=== PATIENT | female | born 1995 | race Caucasian/White ===

== ENCOUNTER 2019-02-08 08:12 | Emergency (ER) | payer BC ==
[2019-02-08] MEDS ORDERED: Sodium Chloride 0.9% 1,000 ML IV ONE (08:58)
--- NOTE | 2019-02-08 09:21 | EDM.PDOC ---
<Darcy Muro - Last Filed: 02/08/19 13:29> ED HPI GENERAL MEDICAL PROBLEM - General Chief Complaint: General Stated Complaint: NEEDS FLUIDS/SENT BY CADEN FERRARI Time Seen by Provider: 02/08/19 09:11 - Related Data Allergies Allergy/AdvReac Type Severity Reaction Status Date / Time iodine Allergy Swelling Verified 02/08/19 08:21 shellfish derived Allergy Swelling Verified 02/08/19 08:21 Home Meds: Home Meds FLUoxetine [PROzac] 1 tab PO DAILY 02/08/19 [History] Levothyroxine 75 mcg PO ACBREAKFAST 02/08/19 [History] Course - Vital Signs Last Recorded V/S: Last Vital Signs Temp 36.9 C 02/08/19 08:22 Pulse 69 02/08/19 08:22 Resp 14 02/08/19 08:22 BP 139/94 H 02/08/19 08:22 Pulse Ox 100 02/08/19 08:22 - Orders/Labs/Meds Orders: Active Orders 24 hr Category Date Time Status Elbow Min 3V Rt [CR] Stat Exams 02/08/19 09:56 Taken Elbow wo Cont Rt [MR] Stat Exams 02/08/19 13:12 Taken Forearm 2V Rt [CR] Stat Exams 02/08/19 09:56 Taken MYOGLOBIN, URINE Stat Lab 02/08/19 11:15 Received Durable Medical Equipment for Discharge [DME for Oth 02/08/19 16:14 Ordered Discharge] [COMM] Stat Labs: Laboratory Tests 02/08/19 02/08/19 02/08/19 Range/Units 08:52 08:52 08:52 WBC 5.93 (3.98-10.04) K/mm3 RBC 4.79 (3.98-5.22) M/mm3 Hgb 13.0 (11.2-15.7) gm/dl Hct 39.3 (34.1-44.9) % MCV 82.0 (79.4-94.8) fl MCH 27.1 (25.6-32.2) pg MCHC 33.1 (32.2-35.5) g/dl RDW Std Deviation 39.0 (36.4-46.3) fL Plt Count 276 (182-369) K/mm3 MPV 10.2 (9.4-12.3) fl Neut % (Auto) 52.4 (34.0-71.1) % Lymph % (Auto) 38.1 (19.3-51.7) % [place] % (Auto) 7.1 (4.7-12.5) % Eos % (Auto) 2.2 (0.7-5.8) Baso % (Auto) 0.2 (0.1-1.2) % Neut # (Auto) 3.11 (1.56-6.13) K/mm3 Lymph # (Auto) 2.26 (1.18-3.74) K/mm3 [place] # (Auto) 0.42 H (0.24-0.36) K/mm3 Eos # (Auto) 0.13 (0.04-0.36) K/mm3 Baso # (Auto) 0.01 (0.01-0.08) K/mm3 Sodium 138 (136-145) mEq/L Potassium 3.7 (3.5-5.1) mEq/L Chloride 105 (98-107) mEq/L Carbon Dioxide 23 (21-32) mEq/L Anion Gap 13.7 (5-15) BUN 11 (7-18) mg/dL Creatinine 0.7 (0.55-1.02) mg/dL Est Cr Clr Drug Dosing 100.74 mL/min Estimated GFR (MDRD) > 60 (>60) mL/min BUN/Creatinine Ratio 15.7 (14-18) Glucose 91 (74-106) mg/dL Calcium 9.2 (8.5-10.1) mg/dL Magnesium 1.7 L (1.8-2.4) mg/dl Total Bilirubin 0.5 (0.2-1.0) mg/dL AST 279 H (15-37) U/L ALT 154 H (14-59) U/L Alkaline Phosphatase 36 L (46-116) U/L Creatine Kinase 33769 H (26-192) U/L Total Protein 7.3 (6.4-8.2) g/dl Albumin 3.9 (3.4-5.0) g/dl Globulin 3.4 gm/dL Albumin/Globulin Ratio 1.2 (1-2) Urine Color (Yellow) Urine Appearance (Clear) Urine pH (5.0-8.0) Ur Specific [place] (1.005-1.030) Urine Protein (Negative) Urine Glucose (UA) (Negative) Urine Ketones (Negative) Urine Occult Blood (Negative) Urine Nitrite (Negative) Urine Bilirubin (Negative) Urine Urobilinogen (0.2-1.0) Ur Leukocyte Esterase (Negative) Urine RBC (0-5) /hpf Urine WBC (0-5) /hpf Ur Squamous Epith Cells (0-5) /hpf Urine Bacteria (FEW) /hpf Urine Mucus (FEW) /hpf 02/08/19 Range/Units 09:45 WBC (3.98-10.04) K/mm3 RBC (3.98-5.22) M/mm3 Hgb (11.2-15.7) gm/dl Hct (34.1-44.9) % MCV (79.4-94.8) fl MCH (25.6-32.2) pg MCHC (32.2-35.5) g/dl RDW Std Deviation (36.4-46.3) fL Plt Count (182-369) K/mm3 MPV (9.4-12.3) fl Neut % (Auto) (34.0-71.1) % Lymph % (Auto) (19.3-51.7) % [place] % (Auto) (4.7-12.5) % Eos % (Auto) (0.7-5.8) Baso % (Auto) (0.1-1.2) % Neut # (Auto) (1.56-6.13) K/mm3 Lymph # (Auto) (1.18-3.74) K/mm3 [place] # (Auto) (0.24-0.36) K/mm3 Eos # (Auto) (0.04-0.36) K/mm3 Baso # (Auto) (0.01-0.08) K/mm3 Sodium (136-145) mEq/L Potassium (3.5-5.1) mEq/L Chloride (98-107) mEq/L Carbon Dioxide (21-32) mEq/L Anion Gap (5-15) BUN (7-18) mg/dL Creatinine (0.55-1.02) mg/dL Est Cr Clr Drug Dosing mL/min Estimated GFR (MDRD) (>60) mL/min BUN/Creatinine Ratio (14-18) Glucose (74-106) mg/dL Calcium (8.5-10.1) mg/dL Magnesium (1.8-2.4) mg/dl Total Bilirubin (0.2-1.0) mg/dL AST (15-37) U/L ALT (14-59) U/L Alkaline Phosphatase (46-116) U/L Creatine Kinase (26-192) U/L Total Protein (6.4-8.2) g/dl Albumin (3.4-5.0) g/dl Globulin gm/dL Albumin/Globulin Ratio (1-2) Urine Color Yellow (Yellow) Urine Appearance Clear (Clear) Urine pH 6.0 (5.0-8.0) Ur Specific [place] 1.025 (1.005-1.030) Urine Protein Negative (Negative) Urine Glucose (UA) Negative (Negative) Urine Ketones Negative (Negative) Urine Occult Blood Negative (Negative) Urine Nitrite Negative (Negative) Urine Bilirubin Negative (Negative) Urine Urobilinogen 0.2 (0.2-1.0) Ur Leukocyte Esterase Negative (Negative) Urine RBC 0-5 (0-5) /hpf Urine WBC Not seen (0-5) /hpf Ur Squamous Epith Cells 0-5 (0-5) /hpf Urine Bacteria Few (FEW) /hpf Urine Mucus Few (FEW) /hpf Meds: Medications Discontinued Medications Generic Name Dose Route Start Last Admin Trade Name Freq PRN Reason Stop Dose Admin Sodium Chloride 1,000 mls @ 999 mls/hr 02/08/19 08:58 02/08/19 09:09 Normal Saline IV 02/08/19 09:58 999 mls/hr ONETIME ONE Administration Lactated Ringer's 1,000 mls @ 999 mls/hr 02/08/19 11:25 02/08/19 11:34 Ringers, Lactated IV 02/08/19 12:25 999 mls/hr .BOLUS ONE Administration Lactated Ringer's 1,000 mls @ 999 mls/hr 02/08/19 13:08 02/08/19 13:19 Ringers, Lactated IV 02/08/19 14:08 999 mls/hr .BOLUS ONE Administration Lactated Ringer's 1,000 mls @ 999 mls/hr 02/08/19 13:08 02/08/19 13:19 Ringers, Lactated IV 02/08/19 14:08 999 mls/hr .BOLUS ONE Administration - Re-Assessments/Exams Free Text/Narrative Re-Assessment/Exam: 02/08/19 1130 [facility] social work contacted to assist with patient placement. Departure - Departure Disposition: Home, Self-Care 01 Clinical Impression: Rhabdomyolysis, Injury of right elbow, Injury of tendon of biceps - Discharge Information Instructions: Rhabdomyolysis Referrals: Caden Ferrari MD [Primary Care Provider] - Anthony Villareal MD [Physician] - Forms: ED Department Discharge Additional Instructions: Return to the emergency room with any questions problems worsening symptoms. Push lots of fluids. Wear the sling at all times. Schedule follow-up appointment with Dr. Villareal - My Orders Last 24 Hours: My Active Orders 02/08/19 09:56 Elbow Min 3V Rt [CR] Stat Forearm 2V Rt [CR] Stat 02/08/19 11:15 MYOGLOBIN, URINE Stat 02/08/19 13:12 Elbow wo Cont Rt [MR] Stat 02/08/19 16:14 Durable Medical Equipment for Discharge [DME for Discharge] [COMM] Stat - Assessment/Plan Last 24 Hours: My Active Orders 02/08/19 09:56 Elbow Min 3V Rt [CR] Stat Forearm 2V Rt [CR] Stat 02/08/19 11:15 MYOGLOBIN, URINE Stat 02/08/19 13:12 Elbow wo Cont Rt [MR] Stat 02/08/19 16:14 Durable Medical Equipment for Discharge [DME for Discharge] [COMM] Stat <Phill Iniguez - Last Filed: 02/08/19 16:34> ED HPI GENERAL MEDICAL PROBLEM - History of Present Illness INITIAL COMMENTS - FREE TEXT/NARRATIVE: 24-year-old female sent over to the emergency room for fluid therapy and further evaluation. One week ago the patient injured her right elbow doing resistance training. She was seen in the clinic yesterday and labs were obtained. Labs were concerning for CPK to came back this morning it a little over 14,000. With suspicion of rhabdomyolysis. She injured her elbow doing resistance training exercises. The patient also runs on a daily basis and has some left thigh pain this is not too severe.. Patient denies any numbness or tingling in any digits. She has significant discomfort with her right elbow and cannot fully extend it. Right Arm Pain Score (Numeric/FACES): 6 ED ROS GENERAL - Review of Systems Review Of Systems: See Below Constitutional: Reports: No Symptoms HEENT: Reports: No Symptoms Respiratory: Reports: No Symptoms Cardiovascular: Reports: No Symptoms Endocrine: Reports: No Symptoms GI/Abdominal: Reports: No Symptoms : Reports: No Symptoms Musculoskeletal: Reports: No Symptoms Skin: Reports: No Symptoms Neurological: Reports: No Symptoms Psychiatric: Reports: No Symptoms ED EXAM, GENERAL - Physical Exam Exam: See Below Exam Limited By: No Limitations General Appearance: Alert, No Apparent Distress Head: Atraumatic, Normocephalic Neck: Normal Inspection, Supple, Non-Tender, Full Range of Motion. No: Lymphadenopathy (L), Lymphadenopathy (R) Respiratory/Chest: No Respiratory Distress, Lungs Clear, Normal Breath Sounds Cardiovascular: Regular Rate, Rhythm, No Edema, No Murmur Peripheral Pulses: 2+: Radial (L), Radial (R) GI/Abdominal: Normal Bowel Sounds, Soft, Non-Tender Back Exam: Normal Inspection. No: CVA Tenderness (L), CVA Tenderness (R) Extremities: Normal Inspection, No Pedal Edema, Other (Close attention paid to her right arm she's got good range of motion of the shoulder her elbow will not fully extend supination pronation seems to be fairly well intact. Neurovascular status of the hand is normal. Her pain is worse on the radial aspect of the proximal most forearm and along the medial olecranon) Neurological: Alert, Oriented, Normal Cognition Course - Re-Assessments/Exams Free Text/Narrative Re-Assessment/Exam: His was a typographical error social work was not involved with this case. 02/08/19 16:20 Free Text/Narrative Re-Assessment/Exam: 02/08/19 16:21 Patient was sent over Thursday fluids for suspected rhabdomyolysis he catches the patient injured herself week ago. Did not seek medical attention until yesterday where was noted that her CPK was 14,000. Today on its own is come down to 10,000. The patient received 4 L of fluid here and she should follow-up in the clinic tomorrow to have repeat basic metabolic panel magnesium and phosphorus checked as well as a CPK. The patient was instructed to drink lots of fluids. I have discussed this follow-up plan with the patient's regular provider Caden Ferrari at the [facility]. The patient's injury involving her right forearm is awfully suspicious for a distal biceps tear or rupture however she still has a fair amount of function. Dr. Landeros today did briefly see the patient with me and recommended getting an MRI of the right elbow. Because of the patient's fluid therapy and her need to stay here for continued IV fluids, we did check with MRI and they were able to get this done. Results still pending. Departure - Departure Time of Disposition: 16:24
[2019-02-08] MEDS ORDERED: Lactated Ringers 1,000 ML IV ONE ×3 (11:25→13:08)
--- NOTE | 2019-02-08 16:30 | MR ---
MRI right elbow Technique: T1, proton fat suppressed and T2 fat-suppressed coronal; fat suppressed inversion recovery, T1 and T2 fat suppressed sagittal; T1 and T2 fat suppressed axial images were obtained of the right elbow. Findings: Normal attachment of the biceps tendon to the radial tuberosity is seen. There is muscle edema being seen within the brachialis muscle with edema extending down the brachialis tendon. Brachialis tendon appears to remain intact. Findings are felt compatible with partial brachialis muscle tear. Additionally edema is seen within the triceps tendon also felt compatible with additional partial muscle tear. Additional edema noted within the brachioradialis muscle compatible with additional partial muscle tear. No full-thickness muscle tear is seen. No low signal fracture line noted around the elbow. Common flexor and extensor tendon attachments appear normal. Triceps tendon appears intact. Impression: 1. Muscle edema within the brachialis, brachioradialis and triceps tendons compatible with partial muscle tearing. 2. Intact triceps tendon and biceps tendon as well as intact brachialis tendon. 3. Intact common flexor and extensor tendon attachments. Diagnostic code #3
--- NOTE | 2019-02-10 09:51 | CR ---
Right forearm: Two views of the right forearm were obtained. Comparison: No previous forearm study. No fracture or other bony abnormality is seen. Impression: 1. No abnormality is identified on two-view right forearm study. Diagnostic code #1
--- NOTE | 2019-02-10 09:51 | CR ---
Right elbow: Four views of the right elbow were obtained. Joint spaces are preserved. No joint effusion is seen. No fracture or other bony abnormality is seen. Impression: 1. No abnormality is appreciated on right elbow study. Diagnostic code #1
== END 2019-02-08 16:35 | disposition home or self-care (01) ==
LOC: JD.ED 08:12
DX: S46.201A Unspecified injury of muscle, fascia and tendon of other parts of biceps, right arm, initial encounter (principal); M62.82 Rhabdomyolysis; Z91.013 Allergy to seafood; Z88.8 Allergy status to other drugs, medicaments and biological substances; X50.0XXA Overexertion from strenuous movement or load, initial encounter; Y93.89 Activity, other specified
CPT/HCPCS: 36415; 73080; 73090; 73221; 80053; 81001; 82550; 83735; 83874; 85025; 96360; 96361; 99284; J7040; J7120